=== PATIENT | male | born 1980 | race Caucasian/White ===

== ENCOUNTER → 2019-11-01 11:58 | Outpatient (CLI) | payer BC, SELFPAY ==
--- NOTE | ~2019-11-01 | XR_ITS ---
EXAMINATION: XR foot RT min 3V DATE: 11/01/2019 12:18 INDICATION: Right foot pain TECHNIQUE: Dorsoplantar, lateral, and 2 oblique views of the right foot were obtained. COMPARISON: None. FINDINGS: There is no fracture, dislocation, or subluxation. The joint spaces are normal. The soft ti ssues are unremarkable. Dorsal and plantar calcaneal enthesophytes are noted. There is a sclerotic le malick of the left proximal phalanx with sharp margins and nonaggressive features, likely a bone island . IMPRESSION: 1. No acute osseous abnormality. Reviewed, dictated and finalized at location A. ICATIONS SALES REPRESENTATIVE
--- NOTE | ~2019-11-01 | XR_ITS ---
EXAMINATION: XR heel RT min 2V INDICATION: Right ankle pain TECHNIQUE: Two views of the calcaneus are obtained. COMPARISON: None available FINDINGS: No fractures identified. Bone alignment is normal. There is a plantar calcaneal enthesophyt e. The soft tissues are unremarkable. IMPRESSION: 1. Plantar calcaneal enthesophyte, otherwise unremarkable examination. Reviewed, dictated and finalized at location A. ER ADMINISTRATOR
== END ==
DX: M25.571 Pain in right ankle and joints of right foot (principal); M77.8 Other enthesopathies, not elsewhere classified
CPT/HCPCS: 73630; 73650

== ENCOUNTER 2020-09-12 18:20 | Emergency (ER) | payer BC, SELFPAY ==
[2020-09-12] VITALS (7 sets, daily range): BP systolic 103–145; BP diastolic 59–91; PULSE 74–86; RESP 20–22; TEMP 36.9; O2SAT 94–100
--- NOTE | ~2020-09-12 | XR_ITS ---
EXAMINATION: XR chest 2V 09/12/2020 20:45 INDICATION: Chest pain and shortness of breath PROCEDURE: 2 view chest COMPARISON: No prior studies for comparison. FINDINGS: The lungs are clear. The cardiomediastinal silhouette is within normal limits. There are no pleural effusions. There is no pneumothorax suspected. IMPRESSION: 1: NO ACUTE CARDIOPULMONARY DISEASE. Reviewed, dictated and finalized at location A. DESIGNER DEVELOPER
--- NOTE | 2020-09-12 18:27 | ECG_ITS ---
Measurements Intervals [place] Rate: 75 P: 59 MA: 171 QRS: 52 QRSD: 88 T: 52 QT: 367 QTc: 412 Interpretive Statements SINUS RHYTHM BASELINE ARTIFACT- I, V1 NORMAL ECG Electronically Signed On 09-13-2020 10:43:25 LITHOGRAPHER APPRENTICE by Bryan Jean D.O.
[2020-09-12 18:41] LABS: Basophils Percent Auto 0.4 % (0.2-1.2); Eosinophils Absolute Auto 0.2 K/mm3 (0-0.3); Hematocrit 38.6 % (42.0-52.0); Hemoglobin 13.1 g/dL (14.0-18.0); Immature Granulocyte Absolute 0.03 K/mm3 (0.00-0.031); Immature Granulocyte Percent A 0.3 % (0-0.5); Lymphocytes Absolute Auto 1.83 K/mm3 (0.9-3.2); Lymphocytes Percent Auto 20.5 % (18.3-44.2); Mean Corpuscular HGB Conc 33.9 g/dl (32-36); Mean Corpuscular Hemoglobin 30.4 pg (26-34); Mean Corpuscular Volume 89.6 fl (80-100); Mean Platelet Volume 11.5 fl (7.4-10.4); Monocytes Absolute Auto 0.5 K/mm3 (0.1-0.6); Monocytes Percent Auto 5.8 % (2.6-8.5); Neutrophils Absolute Auto 6.3 K/mm3 (1.3-6.7); Platelet Count Result 166 k/mm3 (150-375); Red Blood Count 4.31 M/mm3 (4.6-6.20); Red Cell Distribution Width 12.5 % (11.5-14.5); White Blood Count 8.9 K/mm3 (4.5-10.0)
[2020-09-12 18:51] LABS: Prothrombin Time 13.9 Seconds (11.1-14.7)
[2020-09-12 18:52] LABS: Partial Thromboplastin Time 28.7 SECONDS (22.3-36.8)
[2020-09-12 18:53] LABS: Anion Gap 7 mmol/L (8-16); Blood Urea Nitrogen 13 mg/dL (9-20); Calcium 9.3 mg/dL (8.4-10.2); Carbon Dioxide 31 mmol/L (22-30); Chloride 99 mmol/L (98-107); Estimated CRCL calculation 157 ml/min; Estimated Glomerular Filt Rate > 60; Glucose 120 mg/dL (75-110); Potassium 3.9 mmol/L (3.4-5.0); Sodium 137 mmol/L (137-145)
[2020-09-12 19:05] LABS: Troponin I < 0.012 ng/mL (0.000-0.034)
--- NOTE | 2020-09-12 20:02 | ED.GENADULT ---
HPI - General Adult General Chief complaint: Chest Pain Stated complaint: chest pain Time Seen by Provider: 09/12/20 20:02 Source: patient Mode of arrival: ambulatory Limitations: no limitations History of Present Illness HPI narrative: Is a 40-year-old male who is here with complaint of epigastric pain and nausea that started on [place], 3 days ago. He has been taking Prilosec and Tums at home with no relief. He tried to eat some soup today that made him feel quite ill. He has no history of heart disease, GI disease. He states the pain does not radiate. Onset (ago): day(s) Relieving factors: none Associated symptoms: denies other symptoms Treatments prior to arrival: other (antacids) Related Data Home Medications Medication Instructions Recorded Confirmed No Home Medications 09/12/20 09/12/20 Allergies Allergy/AdvReac Type Severity Reaction Status Date / Time No Known Allergies Allergy Verified 09/12/20 20:00 Review of Systems Review of Systems: All systems reviewed & are unremarkable except as noted in HPI and below [facility] Social History Social History (Updated 09/12/20 @ 21:34 by Kait Johansen PA-C) Smoking status: Former smoker Alcohol intake: current Alcohol use details: occasional Substance use: never Living arrangements: with family Exam Const: General: no acute distress (hand pressed to lower sternum) Nutritional Appearance: obese HENMT: Head: normal to inspection Eyes: Pupils: Equal, round and reactive pupils present Resp: Effort & Inspection: normal respiratory effort Auscultation: clear to auscultation bilaterally Cardio: Rate: regular rate Rhythm: regular rhythm GI: GI Palp: Yes Soft to palpation and Yes Tenderness to palpation present (GI) (epigastric and RUQ) Auscultation: normal bowel sounds Skin: General skin exam: normal color Extrem: General: normal to inspection Psych: Appearance: grossly normal Mental Status: mental status grossly normal Course Course Emergency Course: Lab and x-ray results reviewed with patient. Discussed his abnormal liver functions, most likely related to his weight and fatty liver disease. Patient tells me that he is completing his evaluation for weight loss surgery on September 24. Recommend that he follow-up with his primary care physician for possible ultrasound of his liver prior to that surgery. He denies any alcohol use. 2129: is feeling better after GI cocktail. Vital Signs Vital signs: Vital Signs Temperature 36.9 C 09/12/20 18:30 Pulse Rate 86 09/12/20 18:30 Respiratory Rate 20 09/12/20 18:30 Blood Pressure 145/91 H 09/12/20 18:30 Pulse Oximetry 100 09/12/20 18:30 Temperature 36.9 C 09/12/20 18:30 Pulse Rate 74 09/12/20 20:02 Respiratory Rate 20 09/12/20 20:02 Blood Pressure 103/74 09/12/20 20:02 Pulse Oximetry 98 09/12/20 20:02 Medical Decision Making Vital Signs Vital Signs: Vital Signs Temperature 36.9 C 09/12/20 18:30 Pulse Rate 86 09/12/20 18:30 Respiratory Rate 20 09/12/20 18:30 Blood Pressure 145/91 H 09/12/20 18:30 Pulse Oximetry 100 09/12/20 18:30 Temperature 36.9 C 09/12/20 18:30 Pulse Rate 74 09/12/20 20:02 Respiratory Rate 20 09/12/20 20:02 Blood Pressure 103/74 09/12/20 20:02 Pulse Oximetry 98 09/12/20 20:02 Lab Data Result diagrams: 09/12/20 18:34 09/12/20 18:34 Labs: Lab Results 09/12/20 09/12/20 09/12/20 Range/Units 18:34 18:34 18:34 WBC 8.9 (4.5-10.0) K/mm3 RBC 4.31 L (4.6-6.20) M/mm3 Hgb 13.1 L (14.0-18.0) g/dL Hct 38.6 L (42.0-52.0) % MCV 89.6 (80-100) fl MCH 30.4 (26-34) pg MCHC 33.9 (32-36) g/dl RDW 12.5 (11.5-14.5) % Plt Count 166 (150-375) k/mm3 MPV 11.5 H (7.4-10.4) fl Immature Gran % (Auto) 0.3 (0-0.5) % Neut % (Auto) 71.0 (45.5-73.1) % Lymph % (Auto) 20.5 (18.3-44.2) % Loving % (Auto) 5.8 (2.6-
[2020-09-12] MEDS: ASPIRIN 81 MG CHEWABLE TABLET 324 MG PO (20:09)
[2020-09-12 20:26] LABS: Alanine Aminotransferase 111 U/L (4-50); Albumin Level 4.2 g/dL (3.5-5.1); Alkaline Phosphatase 129 U/L (38-126); Aspartate Amino Transferase 199 U/L (17-59); Lipase 91 U/L (23-300)
[2020-09-12] MEDS: BELLADONNA ALK/PHENOB ELIX 10 ML, MAG HYDROX/ALUMINUM HYD/SIMETH 30 ML, LIDOCAINE HCL 2... PO (21:07)
[2020-09-12 22:00] LABS: Troponin I < 0.012 ng/mL (0.000-0.034)
== END 2020-09-12 22:15 | disposition home or self-care (01) ==
PROVIDERS: Emergency Medicine; Physician Assistant; Emergency Provider Emergency Medicine
DX: K21.9 Gastro-esophageal reflux disease without esophagitis (principal); Z87.891 Personal history of nicotine dependence; R74.01 Elevation of levels of liver transaminase levels
CPT/HCPCS: 36415; 71046; 80048; 80076; 83690; 84484; 85025; 85610; 85730; 93005; 99284; A9270

== ENCOUNTER 2020-09-20 09:52 | Outpatient (NON) | payer BC, SELFPAY ==
[2020-09-20 22:17] LABS: SARS-CoV-2 RNA PCR Negative
== END 2020-09-20 09:53 ==
LOC: ANHCOVIDDT 09:55
DX: Z01.818 Encounter for other preprocedural examination (principal); Z20.828 Contact with and (suspected) exposure to other viral communicable diseases
CPT/HCPCS: C9803; U0003